=== PATIENT | female | born 1975 | race Caucasian/White ===

== ENCOUNTER 2023-01-21 13:37 | Outpatient (CLI) | payer OTHER | END 2023-01-21 13:49 | disposition home or self-care (01) | LOC: MRI 13:37 | PROVIDERS: ATTEND Radiology Diagnostic Radiology | DX: S89.82XA Other specified injuries of left lower leg, initial encounter (principal) | CPT/HCPCS: 73718 ==

== ENCOUNTER 2024-06-21 12:38 | Outpatient (CLI) | payer OTHER | END 2024-06-21 12:45 | disposition home or self-care (01) | LOC: MAMO-SONO 12:38 | PROVIDERS: ATTEND Obstetrics & Gynecology | DX: N60.11 Diffuse cystic mastopathy of right breast (principal); N60.12 Diffuse cystic mastopathy of left breast; Z12.31 Encounter for screening mammogram for malignant neoplasm of breast ==